=== PATIENT | female | born 1970 | race Caucasian/White ===

== ENCOUNTER 2017-04-17 16:49 | Observation (INO) ==
[2017-04-17 18:36] LABS: URINE CULTURE NEEDED? NO; URINE MICRO REVIEW NEEDED? NO; URINE SOURCE CLEAN CATCH
[2017-04-17 18:36] LABS: MANUAL DIFF NEEDED? NO
[2017-04-17 18:56] LABS: UR AMPHETAMINES QUAL PRESUMPTIVE POSITIVE (NONE DETECT); UR BARBITUATES QUAL NONE DETECTED (NONE DETECT); UR BENZODIAZEPIN QUAL PRESUMPTIVE POSITIVE (NONE DETECT); UR CANNABINOIDS QUAL NONE DETECTED (NONE DETECT); UR COCAINE QUAL NONE DETECTED (NONE DETECT); UR METHADONE QUAL NONE DETECTED (NONE DETECT); UR OPIATES QUAL NONE DETECTED (NONE DETECT); UR OXYCODONE QUAL NONE DETECTED (NONE DETECT); UR PCP QUAL NONE DETECTED (NONE DETECT)
[2017-04-17 18:58] LABS: BASO% 0.6 % (0.0-0.8); EOS# 0.09 X1000 (0.0-0.7); EOS% 1.7 % (0.0-10.0); HEMATOCRIT 41.4 % (37.0-47.0); HEMOGLOBIN 14.2 g/dL (12.0-16.0); LYMPH# 1.61 X1000 (1.2-3.4); LYMPH% 31.3 % (20.5-51.1); MCH 30.2 PG (27-31); MCHC 34.3 g/dL (33-37); MCV 88.1 FL (81-99); MONO# 0.44 X1000 (0.11-0.59); MONO% 8.5 % (1.7-9.3); MPV 11.8 FL (7.4-10.4); NEUT% 57.9 % (42.2-75.2); PLT 177 X1000 (130-400)
[2017-04-17 19:00] LABS: BILIRUBIN URINE NEGATIVE (NEGATIVE); BLOOD URINE NEGATIVE (NEGATIVE); COLOR STRAW; GLUCOSE URINE NEGATIVE (NEGATIVE); LEUKOCYTES URINE NEGATIVE (NEGATIVE); NITRITE URINE NEGATIVE (NEGATIVE); PROTEIN URINE NEGATIVE (NEGATIVE); SP GRAVITY URINE 1.001; TURBIDITY URINE CLEAR (CLEAR); UROBILINOGEN URINE NORMAL (NORMAL)
[2017-04-17 19:01] LABS: UR EPITHELIAL CELLS <10 /HPF (<10); URINE BACTERIA NEGATIVE /HPF; URINE RBC <10 /HPF (<10); URINE WBC <10 /HPF (<10)
[2017-04-17 19:09] LABS: ACETAMINOPHEN < 1.2 ug/mL (10-30); AGAP 13; ALBUMIN 4.4 g/dL (3.5-5.0); ALKALINE PHOSPHATASE 69 U/L (32-104); BUN 6 mg/dL (8-22); CHLORIDE 109 mmol/L (98-107); COSMO 292; GOT 15 U/L (10-30); GPT 7 U/L (10-36); POTASSIUM 3.4 mmol/L (3.5-5.1); SODIUM 148 mmol/L (136-145); TCO2 26 mmol/L (25-35); TOTAL BILIRUBIN 0.67 mg/dL (0.20-1.00); TOTAL PROTEIN 6.2 g/dL (6.3-8.3)
[2017-04-17 19:22] LABS: FREE T4 1.6 ng/dL (0.93-1.70)
[2017-04-17] MEDS ORDERED: ZOFRAN IV PRN (23:09)
[2017-04-17] MEDS ORDERED: TYLENOL PO PRN (23:09)
[2017-04-17] MEDS ORDERED: SODIUM CHLORIDE 0.9% INJ ONE (23:09)
[2017-04-17] MEDS ORDERED: NS + KCL 20 MEQ 1,000 ML IV ONE (23:09)
[2017-04-18] MEDS: LOVENOX SUBQ SCH ×2 (01:04→23:21)
[2017-04-18] MEDS: PEPCID IV SCH ×4 (01:05→23:21)
[2017-04-18] MEDS ORDERED: APRESOLINE IV PRN (08:36)
[2017-04-18 09:25] LABS: MANUAL DIFF NEEDED? NO
[2017-04-18 09:30] LABS: BASO% 0.2 % (0.0-0.8); EOS# 0.13 X1000 (0.0-0.7); EOS% 2.3 % (0.0-10.0); HEMATOCRIT 40.6 % (37.0-47.0); HEMOGLOBIN 13.9 g/dL (12.0-16.0); LYMPH# 1.24 X1000 (1.2-3.4); LYMPH% 22.1 % (20.5-51.1); MCH 30.2 PG (27-31); MCHC 34.2 g/dL (33-37); MCV 88.3 FL (81-99); MONO# 0.59 X1000 (0.11-0.59); MONO% 10.5 % (1.7-9.3); MPV 11.3 FL (7.4-10.4); NEUT% 64.9 % (42.2-75.2); PLT 160 X1000 (130-400)
[2017-04-18 10:24] LABS: AGAP 10; ALBUMIN 4.1 g/dL (3.5-5.0); ALKALINE PHOSPHATASE 67 U/L (32-104); BUN 8 mg/dL (8-22); CHLORIDE 111 mmol/L (98-107); COSMO 290; GOT 10 U/L (10-30); GPT 6 U/L (10-36); POTASSIUM 3.2 mmol/L (3.5-5.1); SODIUM 147 mmol/L (136-145); TCO2 26 mmol/L (25-35); TOTAL BILIRUBIN 0.89 mg/dL (0.20-1.00); TOTAL PROTEIN 6.2 g/dL (6.3-8.3)
[2017-04-18] MEDS ORDERED: ATIVAN IV PRN (10:31)
[2017-04-18] MEDS ORDERED: SODIUM CHLORIDE 0.9% INJ SCH (10:45)
[2017-04-18] MEDS: 1/2 NS 1,000 ML IV SCH ×2 (11:10→15:18)
[2017-04-18] MEDS: PROTONIX IV SCH ×2 (11:53→23:21)
[2017-04-18] MEDS ORDERED: NICODERM PATCH TD SCH (15:45)
[2017-04-18 15:54] LABS: URINE CULTURE PL NEEDED? NO
[2017-04-18 16:06] LABS: BILIRUBIN URINE NEGATIVE (NEGATIVE); BLOOD URINE NEGATIVE (NEGATIVE); CLARITY CLEAR (CLEAR); COLOR YELLOW; GLUCOSE URINE NEGATIVE (NEGATIVE); LEUKOCYTES URINE NEGATIVE (NEGATIVE); NITRITE URINE NEGATIVE (NEGATIVE); PH URINE 6.5; PROTEIN URINE NEGATIVE (NEGATIVE); UROBILINOGEN URINE NORMAL
[2017-04-18 16:36] LABS: URINE EPITHELIAL CELLS <10 /HPF (<10); URINE RBC <10 /HPF (<10); URINE SOURCE CLEAN CATCH; URINE WBC <10 /HPF (<10)
[2017-04-18] MEDS ORDERED: BLISTEX MEDICATED BERRY LIP BALM TOP ONE (17:43)
[2017-04-18] MEDS ORDERED: HALDOL IV PRN (20:30)
[2017-04-18] MEDS ORDERED: BENADRYL IV PRN (20:30)
[2017-04-18] MEDS ORDERED: ATIVAN IM ONE (20:31)
[2017-04-18] MEDS ORDERED: BENADRYL IM ONE (20:31)
[2017-04-18] MEDS ORDERED: HALDOL IM ONE (20:32)
[2017-04-18] MEDS ORDERED: XANAX PO SCH (21:00)
[2017-04-19] MEDS: 1/2 NS 1,000 ML IV SCH (00:49)
[2017-04-19 04:08] VITALS: BP 140/72
== END 2017-04-19 10:10 | disposition home or self-care (01) ==
LOC: ED 16:49 → SUATTDRO 04-18 00:30 → INTOOBSV 04-18 00:30 → EDIPHOLD 04-18 00:30 → P.ICU 04-18 13:23
PROVIDERS: ATTEND Family Medicine